=== PATIENT | male | born 1960 | race Caucasian/White ===

== ENCOUNTER → 2023-12-26 | Outpatient (CLI) | payer OTHER ==
--- NOTE | 2023-12-26 09:47 | CTL ---
EXAMINATION TYPE: CT Low Dose Lung DATE OF EXAM ORDERED: 12/26/2023 HISTORY: 63-year-old male Z87.891, personal history of tobacco use, shortness of breath, current smok er with 100 pack-year history. Lung cancer screening CT DLP: 97.[address] CTDI: 2.6 mGy Automated exposure control for dose reduction was used. SCREENING VISIT: Baseline COMPARISON: None TECHNIQUE: Low dose computed tomography scan was performed through the chest with coronal and sagitta l reconstructions. CT DIAGNOSTIC QUALITY: Satisfactory FINDINGS: The heart is normal size without pericardial effusion. Mild proximal LAD coronary artery calcificatio ns are present. Borderline ectasia ascending aorta 3.7 cm. 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 No thoracic lymphadenopathy by CT size criteria. Some patchy opacity posterior left base probably atelectasis. There is mild diffuse bronchial wall th ickening. Scattered mild to moderate centrilobular emphysema. Some curvilinear and focal irregular density posterior right midlung with bilobed focal nodularity me asuring 9 mm and 8 mm, axial image 19 and 20. No consolidation or pleural effusion. Visualized upper abdomen shows no gross abnormality. Bones: Mild degenerative disc disease throughout the thoracic spine. IMPRESSION: 1. LungRADS Category 4A (suspicious, 5-15% chance of malignancy). Bilobed focal nodularity measuring 9 mm and 8 mm posterior right midlung. There is some adjacent curvilinear density raising the possibi lity of chronic pleural parenchymal scarring. Short interval follow-up advised. 2. COPD with mild to moderate emphysema. Advise smoking cessation. CT LUNG RAD AND CT CHEST RECOMMENDATION: Lung-Rad 4A Suspicious: Follow-up 3 month LDCT or PET/CT may be used when there is a > 8 mm solid component. S Modifier (other clinically significant findings): None
== END | disposition home or self-care (01) ==
LOC: RADCTMAIN 08:34
PROVIDERS: ATTEND Family Medicine
DX: J43.9 Emphysema, unspecified (principal); Z87.891 Personal history of nicotine dependence
CPT/HCPCS: 71271